=== PATIENT | male | born 1970 | race Caucasian/White ===

== ENCOUNTER 2018-09-07 21:50 | Emergency (ER) | payer MEDICAID ==
[~2018-09-07] VITALS: Ht 175.3 cm; Wt 121.0 kg
[2018-09-07] MEDS ORDERED: MORPHINE SULFATE 10 MG/ML CPJ IV ONE (23:15)
[2018-09-07] MEDS ORDERED: METHOCARBAMOL 750MG TABLET PO SCH (23:15)
[2018-09-07] MEDS ORDERED: MORPHINE SULFATE 10 MG/ML CPJ IM ONE (23:15)
[2018-09-07] MEDS ORDERED: KETOROLAC 60MG/2ML VIAL IM ONE (23:15)
[2018-09-07 23:29] VITALS: BP 144/71
== END 2018-09-08 00:30 | disposition home or self-care (01) ==
LOC: ER 21:50
DX: M54.41 Lumbago with sciatica, right side (principal); Z98.890 Other specified postprocedural states
CPT/HCPCS: 96372; 99283; J2270

== ENCOUNTER 2018-12-23 19:26 | Emergency (ER) | payer MEDICAID ==
[~2018-12-23] VITALS: Ht 175.3 cm; Wt 118.0 kg
[2018-12-23] MEDS ORDERED: OXYCODONE HCL/ACETAMINOPHEN 5/325MG TABLET PO ONE (23:00)
[2018-12-23] MEDS ORDERED: KETOROLAC 30MG/ML VIAL IM ONE (23:00)
[2018-12-23 23:29] VITALS: BP 131/74
== END 2018-12-23 23:34 | disposition home or self-care (01) ==
LOC: ER 19:26
DX: M54.9 Dorsalgia, unspecified (principal); G89.29 Other chronic pain; M54.30 Sciatica, unspecified side; F17.200 Nicotine dependence, unspecified, uncomplicated
CPT/HCPCS: 82962; 96372; 99283; J1885; Z7610

== ENCOUNTER 2019-04-18 13:07 | Emergency (ER) | payer MEDICAID ==
[~2019-04-18] VITALS: Ht 177.8 cm; Wt 100.0 kg
[2019-04-18 13:30] VITALS: BP 114/72
[2019-04-18] MEDS ORDERED: KETOROLAC 60MG/2ML VIAL IM ONE (15:15)
[2019-04-18] MEDS ORDERED: OXYCODONE HCL/ACETAMINOPHEN 5/325MG TABLET PO ONE ×3 (15:15→15:45)
== END 2019-04-18 16:05 | disposition home or self-care (01) ==
LOC: ER 13:07
DX: M54.5 Low back pain (principal); M54.31 Sciatica, right side; Z88.3 Allergy status to other anti-infective agents; Z98.890 Other specified postprocedural states
CPT/HCPCS: 96372; 99283; J1885